=== PATIENT | female | born 1930 | race Caucasian/White ===

== ENCOUNTER 2018-03-22 09:24 | Emergency (ER) | payer MEDICARE ==
[2018-03-22 10:09] LABS: #Basophils 0.1 thou/uL (0.0-0.2); #Eosinphils 0.1 thou/uL (0.0-0.7); #Lymphocytes 0.8 thou/uL (1.20-3.40); #Monocytes 0.9 thou/uL (0.11-0.59); #Neutrophils 7.6 thou/uL (1.40-6.50); %Basophils 0.9 % (0.0-1.0); %Eosinophils 0.5 % (0.0-10.0); %Neutrophils 80.6 % (42.0-75.0); Hemoglobin 11.3 g/dL (12.0-16.0); Mean Corpuscular HGB CONC 32.9 g/dL (32.0-36.0); Mean Corpuscular Hemoglobin 30.8 pg (27.0-31.0); Mean Corpuscular Volume 93.5 fl (81.0-99.0); Mean Platelet Volume 7.7 fL (7.4-10.4); Platelet Count 365 thou/uL (130-400); RBC Distribution Width 13.7 % (11.5-14.5); Red Blood Cell (RBC) Count 3.67 mill/uL (4.20-5.40); White Blood Cell (WBC) Count 9.4 thou/uL (4.8-10.8)
--- NOTE | 2018-03-22 10:14 | RAD ---
PORTABLE CHEST ONE VIEW: Date: 03-22-18 Time: 10:02 a.m. History: Syncope. Comparison: None. FINDINGS/IMPRESSION: The heart size is borderline. Mild pleural effusions are present, larger on the left. No pneumothorac es are identified. There is mild prominence of pulmonary vascularity. POS: [facility]
[2018-03-22 10:31] LABS: Anion Gap 11 mmol/L (10-20); BUN (Urea Nitrogen) 23 mg/dL (9.8-20.1); CK (CPK) 29 U/L (29-168); Calc. Creatinine Clearance 0 mL/min (70-130); Calcium 8.6 mg/dL (7.8-10.44); Carbon Dioxide 25 mmol/L (23-31); Chloride 107 mmol/L (98-107); Estimated GFR-MDRD 52; Glucose 116 mg/dL (83-110); Potassium 4.1 mmol/L (3.5-5.1); Sodium 139 mmol/L (136-145)
[2018-03-22 10:34] LABS: CKMB 1.6 ng/mL (0-6.6); Troponin I 0.018 ng/mL (< 0.028)
--- NOTE | 2018-03-22 10:49 | RAD ---
LEFT HIP TWO VIEWS: HISTORY: An 87-year-old female with a history of left hip pain following an injury. Syncope. Collapse. COMPARISON: No old studies. FINDINGS: Recent left hip nail placement, stabilizing a slightly comminuted intertrochanteric fracture of the l eft femur with slight foreshortening. Bony demineralization. IMPRESSION: 1. Internal fixation changes, intertrochanteric fracture, left femur. 2. No evidence for perihardware fracture or dislocation. POS: C
--- NOTE | 2018-03-22 10:50 | CT ---
BRAIN CT WITHOUT IV CONTRAST: History: 87-year-old female with history of altered mental status. FINDINGS: Marked atrophy and chronic white matter ischemic changes. No mass or midline shift. No intra or extra axial hemorrhages. Sinuses and mastoids are clear of acute process. IMPRESSION: Atrophy and chronic white matter ischemic change. No mass or bleed or other acute process. POS: [facility]
[2018-03-22 10:57] LABS: Bilirubin Negative (Negative); Blood, Urine Negative (Negative); Glucose, Urine (Dipstick) Negative (Negative); Leukocyte Negative (Negative); Nitrite Negative (Negative); Protein, Urine (Dipstick) Negative (Neg-Trace); Urobilinogen 0.2 mg/dL (0.2-1.0); pH, Urine 6.5 (5.0-9.0)
[2018-03-22 10:59] LABS: Clarity Clear (Clear)
== END 2018-03-22 12:30 | disposition home or self-care (01) ==
LOC: ERS 09:24
DX: E86.0 Dehydration (principal); I48.91 Unspecified atrial fibrillation; F03.90 Unspecified dementia, unspecified severity, without behavioral disturbance, psychotic disturbance, mood disturbance, and anxiety; I10 Essential (primary) hypertension; I25.10 Atherosclerotic heart disease of native coronary artery without angina pectoris; Z79.899 Other long term (current) drug therapy
CPT/HCPCS: 36415; 51701; 70450; 71045; 80048; 81003; 82550; 82553; 83605; 84484; 85025; 87040; 87086; 93005; 96360; A4353

== ENCOUNTER 2019-01-12 03:35 | Inpatient (IN) | payer MEDICARE, OTHER ==
[2019-01-12 04:15] LABS: #Eosinphils 0.1 thou/uL (0.0-0.7); #Lymphocytes 1.5 thou/uL (1.20-3.40); #Monocytes 0.9 thou/uL (0.11-0.59); %Basophils 0.2 % (0.0-1.0); %Eosinophils 0.8 % (0.0-10.0); %Lymphocytes 13.1 % (21.0-51.0); Hemoglobin 10.9 g/dL (12.0-16.0); Mean Corpuscular HGB CONC 32.7 g/dL (32.0-36.0); Mean Corpuscular Hemoglobin 30.1 pg (27.0-31.0); Mean Corpuscular Volume 92.2 fL (78.0-98.0); Mean Platelet Volume 7.7 fL (7.4-10.4); Platelet Count 224 thou/uL (130-400); RBC Distribution Width 11.7 % (11.5-14.5); Red Blood Cell (RBC) Count 3.62 mill/uL (4.20-5.40); White Blood Cell (WBC) Count 11.5 thou/uL (4.8-10.8)
[2019-01-12 04:30] LABS: ALT (SGPT) 24 U/L (8-55); AST (SGOT) 25 U/L (5-34); Albumin 3.6 g/dL (3.4-4.8); Alkaline Phosphatase 116 U/L (40-150); Anion Gap 13 mmol/L (10-20); BUN (Urea Nitrogen) 20 mg/dL (9.8-20.1); Bilirubin, Total 0.5 mg/dL (0.2-1.2); Calc. Creatinine Clearance 0 mL/min (70-130); Calcium 8.9 mg/dL (7.8-10.44); Carbon Dioxide 24 mmol/L (23-31); Chloride 105 mmol/L (98-107); Estimated GFR-MDRD 41; Globulin 2.6 g/dL (2.4-3.5); Glucose 144 mg/dL (83-110); Potassium 4.8 mmol/L (3.5-5.1); Protein, Total 6.2 g/dL (6.0-8.3); Sodium 137 mmol/L (136-145)
[2019-01-12 04:34] LABS: INR-International Normal Ratio 1.1; PTT 28.2 SEC (22.9-36.1); Prothrombin Time 13.9 SEC (12.0-14.7)
[2019-01-12] MEDS ORDERED: Ondansetron PF 4 MG/2 ML Vial ONE (04:52)
[2019-01-12] MEDS ORDERED: Morphine 2 MG/ML SYRINGE ONE (06:26)
--- NOTE | 2019-01-12 07:10 | CT ---
CT OF THE BRAIN WITHOUT CONTRAST: Date: 01/12/19 INDICATION: History of fall with head injury. COMPARISON: Prior study dated 03/22/18. FINDINGS: The mild to moderate chronic small vessel white matter ischemic change and generalized cerebral atrop hy is stable. Septum pellucidum and third ventricle are midline. No acute infarct, hemorrhage, or hyd rocephalus is present. Skull and extracranial soft tissues appear within normal limits. IMPRESSION: No acute intracranial abnormality. POS: [facility]
--- NOTE | 2019-01-12 07:12 | CT ---
CT CERVICAL SPINE WITHOUT CONTRAST: Date: 01/12/19 INDICATION: History of trauma with possible neck injury; fall. FINDINGS: Visualized mastoid air cells are clear. There is hyperlordosis of the cervical spine which may be rel ated to positioning. No acute fracture or subluxation is evident. There is diffuse osteopenia. Osseou s central canal and prevertebral soft tissues appear within normal limits. There is pleural parenchym al scarring involving both lung apices. The craniocervical junction appears within normal limits. IMPRESSION: No acute osseous abnormality. POS: [facility]
[2019-01-12] MEDS ORDERED: cefTRIAXone\\ROCEPHIN 2 GM VIAL ONE (07:48)
[2019-01-12] MEDS ORDERED: Azithromycin 500 MG VIAL ONE (07:48)
--- NOTE | 2019-01-12 07:49 | RAD ---
FRadiograph chest one view portable: 01/12/2019 5:32 AM HISTORY: 88-year-old female status post chest trauma from fall COMPARISON: 03/22/2018 FINDINGS: Hyperinflation consistent with COPD. Mild cardiomegaly. Mild blunting of left lateral costophrenic an gle. Previously seen left pleural effusion has decreased in size. Pulmonary venous engorgement. Promi nent interstitial markings heterogeneously distributed in the lungs. No pneumothorax. IMPRESSION: 1. Pleural effusion, mild cardiomegaly, and possible pulmonary interstitial edema, or evidence for mi ld congestive heart failure. 2. Emphysema.
[2019-01-12] MEDS ORDERED: CEFAZOLIN 2 GM in Premix Bag 1 BAG IVPB SCH (08:00)
--- NOTE | 2019-01-12 08:07 | RAD ---
RIGHT KNEE 4 VIEWS: Date: 01/12/19 PROVIDED CLINICAL HISTORY: Pain status post fall. FINDINGS: Overlying material obscures detail and limits evaluation. There is no definite evidence for fracture or other acute osseous abnormality. If there is persistent clinical concern, conservative management and follow-up imaging are advised. IMPRESSION: As above. POS: [facility]
--- NOTE | 2019-01-12 08:08 | RAD ---
RIGHT HIP 2 VIEWS: Date: 01/12/19 PROVIDED CLINICAL HISTORY: Right hip pain status post injury. FINDINGS: There is an intertrochanteric right proximal femoral fracture with resultant coxa vara. Right hip stefan nt space appears maintained. No additional fracture is evident. IMPRESSION: Angulated intertrochanteric right proximal femoral fracture. POS: [facility]
--- NOTE | 2019-01-12 08:26 | CT ---
CT ANGIO OF CHEST PERFORMED WITH INTRAVENOUS CONTRAST ENHANCEMENT WITH 3D RECONSTRUCTIONS: HISTORY: Dyspnea. FINDINGS: There are mild to moderate bilateral pleural effusions. There are bibasilar atelectatic lung changes associated with this. Changes are slightly more confluent in the right lower lobe and infiltrative process is not excluded. Some element of edema appears to be present. No significant mediastinal or hilar lymphadenopathy. Thoracic aorta is normal in caliber. There is good pulmonary artery opacification, and there is no CT evidence for pulmonary embolus. There is a slightly lobulated hypodense lesion within the right lobe of the liver. It measures 3.5 c m in size. On the arterial phase, the CT numbers are most indicative of a cyst increased slightly to above typical cyst numbers on the sequence of more delayed images that were performed, but Hounsfiel d unit variation is only 13, which is not definitive for contrast enhancement. I think an ultrasound may be helpful in evaluating the cystic nature of this. IMPRESSION: 1. No CT evidence for pulmonary embolus. 2. Moderate bilateral pleural effusions with bibasilar lung changes consistent with atelectasis vers us infiltrate. Changes in the right base appear slightly more suggestive of an infiltrative change. There also appears to be some element of edema present. 3. A 3.5 cm lobulated hypodense lesion involving the right lobe of the liver most likely a cyst, alt abbie CT Hounsfield unit numbers are borderline indeterminate. Ultrasound may be helpful given the s ize of this to definitely characterize this is a cyst on a nonemergent basis. POS: [facility]
[2019-01-12] MEDS ORDERED: Furosemide 40 MG/4 ML VIAL SLOW IVP SCH (09:45)
[2019-01-12] MEDS ORDERED: Acetaminophen 325 MG TAB PO PRN (10:04)
[2019-01-12] MEDS ORDERED: methylPREDNISolone Sod Succ/PF 125 MG/2 ML VIAL ONE (10:12)
[2019-01-12] MEDS ORDERED: hydrALAZINE 20 MG/ML VIAL SLOW IVP PRN (10:20)
[2019-01-12] MEDS ORDERED: methylPREDNISolone Sod Succ/PF 125 MG/2 ML VIAL IVP SCH (10:45)
[2019-01-12] MEDS ORDERED: Furosemide 40 MG/4 ML VIAL ONE (11:19)
[2019-01-12] MEDS ORDERED: Piperacillin/Tazobactam 3.375 GM in Sodium Chloride 0.9% 100 ML IVPB SCH (12:00)
[2019-01-12] MEDS ORDERED: Vancomycin HCl 500 MG in Sodium Chloride 0.9% 100 ML IVPB SCH (13:00)
[2019-01-12] MEDS: methylPREDNISolone Sod Succ 40 MG VIAL IVP SCH (14:44)
[2019-01-12] MEDS: Piperacillin/Tazobactam 2.25 GM in Sodium Chloride 0.9% 100 ML IVPB SCH ×2 (14:44→20:19)
[2019-01-12] MEDS: Acetaminophen 500 MG TAB PO SCH ×2 (14:44→17:45)
[2019-01-12] MEDS ORDERED: methylPREDNISolone Sod Succ 40 MG VIAL ONE (14:55)
[2019-01-12] MEDS ORDERED: Acetaminophen 500 MG TAB ONE (14:55)
[2019-01-12] MEDS ORDERED: ISOVUE-370 76%-LOCM 1 ML ONE (15:05)
[2019-01-12 15:36] VITALS: BMI 14.3
--- NOTE | 2019-01-12 15:48 | PDOC.PN ---
- Subjective Encounter Start Date: 01/12/19 Encounter Start Time: 09:00 Subjective: pt had a fall at the residential. she has a hx of dementia. -: spoke with poa. Called pcp but limited hx since pt recently joined -: his practice. spoke with residential nurse who stated that pt has being doing well. Denies any sob, fever or chills or coughing with aspiration - Objective Resuscitation Status - Order Detail: 01/12/19 10:04 Resuscitation Status Routine Resuscitation Status: FULL: Full Resuscitation Vital Signs & Weight: Vital Signs (12 hours) Temp Resp Pulse Ox 01/12/19 15:32 99.0 F 01/12/19 14:03 20 96 Weight Weight 75 lb 12.8 oz Result Diagrams: 01/12/19 04:05 01/12/19 04:05 Phys Exam - Physical Examination Neck: no nodes, no JVD, supple, full ROM mild crackles to bases Cardiovascular: RRR, no significant murmur, no rub, gallop, irregular Gastrointestinal: soft, non-tender, no distention, positive bowel sounds Musculoskeletal: no edema, pulses present, edema present Deviation from normal: pt has a growth to her left neck and right lower leg Dx/Plan (1) Hypoxia Code(s): R09.02 - HYPOXEMIA Status: Acute (2) HTN (hypertension) Code(s): I10 - ESSENTIAL (PRIMARY) HYPERTENSION Status: Acute (3) Right femoral fracture Code(s): S72.91XA - UNSP FRACTURE OF RIGHT FEMUR, INIT FOR CLOS FX Status: Acute (4) CAD (coronary artery disease) Code(s): I25.10 - ATHSCL HEART DISEASE OF [place] CORONARY ARTERY W/O ANG PCTRS Status: Acute (5) Hypothyroid Code(s): E03.9 - HYPOTHYROIDISM, UNSPECIFIED Status: Acute - Plan pt has not been on any asa. will start pt on lasix iv for now -: pt was hypoxic most likely due to bilateral plerual effusion. -: i do not think she has pna but will put her on abx for health care -: acquired pna. will check a procalcitonin level. poa want pt to be -: full code. will get echo, ekg no acute changes from previous. * . Review of Systems - Review of Systems Other: pt has dementia. only complains of pain to her right leg/hip - Medications/Allergies Allergies/Adverse Reactions: Allergies Allergy/AdvReac Type Severity Reaction Status Date / Time No Known Drug Allergies Allergy Verified 01/12/19 15:37 Medications: Current Medications Acetaminophen (Tylenol) 1,000 mg PO Q6HR [facility] Last Admin: 01/12/19 14:44 Dose: 1,000 mg Albuterol/Ipratropium (Duoneb) 3 ml NEB [id number] [facility] Last Admin: 01/12/19 14:03 Dose: 3 ml Enoxaparin Sodium (Lovenox) 40 mg SC 0900 [facility] Famotidine (Pepcid) 20 mg SLOW IVP Q12HR [facility] Hydralazine HCl (Apresoline) 10 mg SLOW IVP Q4H PRN PRN Reason: SBP >160 Piperacillin Sod/Tazobactam (Sod 2.25 gm/ Sodium Chloride) 100 mls @ 200 mls/ hr IVPB 0400,1200,2000 [facility] Last Admin: 01/12/19 14:44 Dose: 100 mls Vancomycin HCl 500 mg/ Sodium (Chloride) 100 mls @ 100 mls/hr IVPB 1300 [facility] Last Admin: 01/12/19 15:43 Dose: 100 mls Methylprednisolone Sodium Succinate (Solu-Medrol) 20 mg IVP 1400 [facility] Last Admin: 01/12/19 14:44 Dose: 20 mg Miscellaneous Medication (Pharmacy To Dose) 1 each IVPB PRN PRN PRN Reason: Pharmacy to dose Tramadol HCl (Ultram) 50 mg PO Q6H PRN PRN Reason: Moderate to Severe Pain (6-10)
[2019-01-12 18:10] LABS: Bilirubin Negative (Negative); Blood, Urine Negative (Negative); Clarity CLEAR (Clear); Glucose, Urine (Dipstick) Negative (Negative); Leukocyte Negative (Negative); Nitrite Negative (Negative); Protein, Urine (Dipstick) Negative (Neg-Trace); Specific Gravity, Urine 1.014 (1.002-1.036); Urobilinogen 0.2 mg/dL (0.2-1.0)
[2019-01-12 18:19] LABS: Bacteria/HPF None Seen HPF (None Seen); Hyaline Casts/LPF 0-3 HYALINE CAST LPF (0-3 Hyaline); Pathc Cast-AUWi Flag 0.13 (0-2.49); RBC/HPF 0-3 HPF (0-3); Squamous Epithelial None Seen HPF (0-3); WBC/HPF None Seen HPF (0-3)
--- NOTE | 2019-01-12 19:56 | CON ---
DATE OF CONSULTATION: REASON FOR CONSULTATION: Preop clearance. HISTORY OF PRESENT ILLNESS: Ms. Black is an 88-year-old woman who [facility] The details around the episode are unknown. She is unsure whether she tripped and fell or passed out and fell. She denies chest pain, pressure, shortness of breath, or associated symptoms. History is limited from the chart. PAST MEDICAL HISTORY: Atrial fibrillation, hypertension, scoliosis, dementia, CAD. Other details unknown. ALLERGIES: NONE. MEDICATIONS: 1. Potassium. 2. Metoprolol. 3. Tylenol. 4. Atorvastatin. 5. Lasix. 6. Levothyroxine. REVIEW OF SYSTEMS: A 10-point review of systems is reviewed and as above, otherwise negative. PHYSICAL EXAMINATION: GENERAL: Patient is a pleasant woman who is in no acute distress. The patient does appear her stated age. She also appears thin and weak. VITAL SIGNS: Blood pressure 159/57, pulse is 71, temperature afebrile. NEUROLOGIC: The patient is alert and oriented x3 with no focal neurologic deficits. HEENT: Sclerae without icterus. Mouth has moist mucous membranes with normal pallor. NECK: No JVD. Carotid upstroke brisk. No bruits bilaterally. LUNGS: Clear to auscultation with unlabored respirations. BACK: No scoliosis or kyphosis. CARDIAC: Regular rate and rhythm with normal S1 and S2. No S3 or S4 noted. No significant rubs, murmurs, thrills, or gallops noted throughout the precordium. PMI is not displaced. There is no parasternal heave. ABDOMEN: Soft, nontender, nondistended. No peritoneal signs present. No hepatosplenomegaly. No abnormal striae. EXTREMITIES: 2+ femoral and 2+ dorsalis pedis pulses. No cyanosis, clubbing, or edema. SKIN: No gross abnormalities. PERTINENT LABORATORY DATA: Hemoglobin 10.9, creatinine 1.25, GFR 41. BNP of 637. IMPRESSION: 1. Preop clearance. 2. Recent fall. RECOMMENDATION: Ms. Black certainly based on her history would be considered increased risk and complications for hip surgery. I do feel the benefits outweigh the risks. There is significant morbidity and mortality without repair. I would recommend echo with Doppler to assess her LVEF. Otherwise, continue beta-reji therapy as described. Job ID: [id number]
[2019-01-12] MEDS: Famotidine/PF 20 mg/2ml Vial SLOW IVP SCH (20:19)
[2019-01-12] MEDS: Metoprolol Tartrate 50 MG TAB PO SCH (20:19)
[2019-01-12] MEDS ORDERED: Vancomycin HCl 1 GM in Premix Bag 1 BAG IVPB SCH (21:00)
--- NOTE | 2019-01-12 21:24 | CON ---
DATE OF CONSULTATION: 01/12/2019 BRIEF HISTORY OF PRESENT ILLNESS: The patient is an 88-year-old lady who is status post ground level fall at her [facility] early on the morning of her admission. The fall was unwitnessed. Upon arrival at [place], her principal complaint was that of right hip pain. Workup included x-rays of the right hip, which demonstrated an intertrochanteric femur fracture with displacement. The patient admitted to the Trauma Service and Orthopedic consultation requested. PAST MEDICAL HISTORY: Remarkable for atrial fibrillation, hypertension, severe dementia, coronary artery disease. PAST SURGICAL HISTORY: Includes left femur fracture with repair. MEDICATIONS: Per her medication reconciliation form were consistent with potassium, metoprolol, citalopram, atorvastatin, Lasix and levothyroxine. ALLERGIES: NONE KNOWN. REVIEW OF SYSTEMS: No recent fevers, sweats, or chills. Denies chest pain or shortness of breath. Currently denies numbness or tingling in the lower extremities. SOCIAL HISTORY: The patient currently resides in [facility]. She denies alcohol or drug use. PHYSICAL EXAMINATION: VITAL SIGNS: Temperature 99, heart rate 71, respiratory rate 22, blood pressure 183/76. HEENT: Atraumatic, normocephalic. HEART: Shows a regular rate and rhythm with no murmur. LUNGS: Clear to auscultation and breathing is unlabored. NECK: Neck is nontender. ABDOMEN: Soft and nondistended with no tenderness. PELVIS: Stable. EXTREMITIES: Remarkable for bilateral upper extremities that are atraumatic. Left lower extremity also atraumatic. Right lower extremity remarkable for hip that is held in external rotation and it is shortened. She was found to have an atraumatic knee ankle and foot. She is wiggling her toes. Denies numbness or tingling. LABORATORY DATA: She was found to have an INR of 1.1, a white blood cell count of 11.5, a hematocrit of 33.4, and 224,000 platelets. X-ray, two-view hip x-ray remarkable for an intertrochanteric femur fracture with a small split extending along the border of the lesser trochanter. ASSESSMENT: An 88-year-old lady status post ground level fall, now with an intertrochanteric femur fracture which is displaced. PLAN: At this time, the patient is receiving a cardiac consultation to assess for preoperative risk factors. I have discussed with Ms. Black the nature of the surgery and more importantly I have discussed with a close friend who is also her durable power of packaging sales the risks and benefits of surgery. Risks include, but are not limited to bleeding, infection, nerve injury, DVT, PE, malunion, nonunion, loss of limb or life. He appears to understand and he has consented for surgery. Once cardiac clearance is completed, we will proceed with stabilization of this fracture. Job ID: [id number]
[2019-01-13] MEDS: Acetaminophen 500 MG TAB PO SCH ×4 (01:41→18:23)
[2019-01-13] MEDS: Piperacillin/Tazobactam 2.25 GM in Sodium Chloride 0.9% 100 ML IVPB SCH ×3 (04:28→20:12)
[2019-01-13] MEDS: traMADol HCl 50 MG TAB PO PRN (04:33)
[2019-01-13 05:03] LABS: Anion Gap 16 mmol/L (10-20); BUN (Urea Nitrogen) 27 mg/dL (9.8-20.1); Calc. Creatinine Clearance 14 mL/min (70-130); Calcium 8.2 mg/dL (7.8-10.44); Carbon Dioxide 23 mmol/L (23-31); Chloride 101 mmol/L (98-107); Estimated GFR-MDRD 32; Glucose 93 mg/dL (83-110); Magnesium 1.7 mg/dL (1.6-2.6); Phosphorus 3.7 mg/dL (2.3-4.7); Potassium 3.6 mmol/L (3.5-5.1); Sodium 136 mmol/L (136-145)
[2019-01-13 05:07] LABS: Band 6 % (5-11); Hemoglobin 10.7 g/dL (12.0-16.0); Lymphocytes 6 % (21-51); MDiff Complete? YES; Mean Corpuscular HGB CONC 32.4 g/dL (32.0-36.0); Mean Corpuscular Hemoglobin 29.4 pg (27.0-31.0); Mean Corpuscular Volume 90.7 fL (78.0-98.0); Mean Platelet Volume 7.8 fL (7.4-10.4); Monocytes 10 % (0-10); Neutrophil 78 % (42-75); Platelet Count 189 thou/uL (130-400); Platelet Morphology Comment Appears Adequate; RBC Distribution Width 11.8 % (11.5-14.5); RBC Morphology Normal; Red Blood Cell (RBC) Count 3.63 mill/uL (4.20-5.40); White Blood Cell (WBC) Count 21.6 thou/uL (4.8-10.8)
[2019-01-13] MEDS: Metoprolol Tartrate 50 MG TAB PO SCH ×2 (06:17→20:11)
[2019-01-13] MEDS: Levothyroxine Sodium 50 MCG TAB PO SCH (06:17)
[2019-01-13] MEDS: Citalopram 20 MG TAB PO SCH (08:44)
[2019-01-13] MEDS: Atorvastatin Calcium 10 MG TAB PO SCH (08:44)
[2019-01-13] MEDS: Furosemide 40 MG/4 ML VIAL SLOW IVP SCH (08:45)
[2019-01-13] MEDS: Famotidine/PF 20 mg/2ml Vial SLOW IVP SCH (08:45)
--- NOTE | 2019-01-13 08:54 | PDOC.CTH ---
Cardiology Progress Note - Objective Vital Signs Temp Pulse Resp Pulse Ox 01/13/19 07:50 100 01/13/19 07:04 99.8 F H 01/13/19 06:53 91 L 01/13/19 06:51 82 23 H 91 L 01/13/19 04:00 99.6 F 01/13/19 02:30 75 19 97 01/12/19 23:53 99.4 F 01/12/19 22:18 65 22 H 100 Admit Weight 75 lb 12.8 oz Weight 75 lb 12.8 oz 01/12/19 01/13/19 01/14/19 06:59 06:59 06:59 Intake Total 620 Output Total 200 Balance 420 - Physical Examination General/Neuro: NAD Neck: no JVD present Lungs: CTA, unlabored respirations Heart: PMI normal, RRR Abdomen: NT/ND, soft Extremities: + femoral B - Labs Result Diagrams: 01/13/19 04:20 01/13/19 04:20 Troponin/CKMB Troponin I 0.014 ng/mL (< 0.028) 01/12/19 04:05 - Assessment/Plan Hip fracture Previous history is limited Echo with normal EF, moderate AI, MR and mod to severe TR and moderate pulmonary HTN Pt at increase risk of CV complications but given hip fracture, the benefits outweigh the risks of proceeding with surgery Keep BP, HR optimal. No other recommendations
[2019-01-13] MEDS ORDERED: Enoxaparin Sodium 40 MG/0.4 ML SYRINGE SC SCH (09:00)
[2019-01-13] MEDS ORDERED: Midazolam HCl 2 mg/2 ml Vial ONE (09:28)
[2019-01-13] MEDS ORDERED: Morphine 2 MG/ML SYRINGE ONE (09:56)
[2019-01-13] MEDS ORDERED: Ondansetron PF 4 MG/2 ML Vial ONE (10:00)
[2019-01-13] MEDS ORDERED: PROPOFOL 200 MG/20 ML VIAL ONE (10:00)
[2019-01-13] MEDS ORDERED: Fentanyl 100 MCG/2 ML VIAL ONE (10:59)
[2019-01-13] MEDS ORDERED: Ondansetron HCl/PF 4 MG/2 ML Vial IVP PRN (11:45)
--- NOTE | 2019-01-13 12:04 | RAD ---
FIntraoperative imaging of the right hip: 01/13/2019 COMPARISON: 01/12/2019 HISTORY: Fracture status post ORIF FINDINGS: 3 intraoperative images demonstrate interval placement of a short antegrade intramedullary charles with an associated distal interlocking screw and femoral neck nail. This is treating the previous ly noted obliquely oriented intertrochanteric fracture. There is anatomic alignment at the fracture s ite. IMPRESSION: ORIF as detailed above.
--- NOTE | 2019-01-13 12:26 | PDOC.PN ---
- Subjective Encounter Start Date: 01/13/19 Encounter Start Time: 12:24 Patient seen and examined - Objective Resuscitation Status - Order Detail: 01/12/19 10:04 Resuscitation Status Routine Resuscitation Status: FULL: Full Resuscitation Vital Signs & Weight: Vital Signs (12 hours) Temp Pulse Resp Pulse Ox 01/13/19 07:50 100 01/13/19 07:04 99.8 F H 01/13/19 06:53 91 L 01/13/19 06:51 82 23 H 91 L 01/13/19 04:00 99.6 F 01/13/19 02:30 75 19 97 Weight Admit Weight 75 lb 12.8 oz Weight 75 lb 12.8 oz Most Recent Monitor Data Heart Rate from ECG 72 NIBP 174/55 NIBP BP-Mean 94 Respiration from ECG 20 SpO2 100 I&O: 01/12/19 01/13/19 01/14/19 06:59 06:59 06:59 Intake Total 620 Output Total 200 Balance 420 Result Diagrams: 01/13/19 04:20 01/13/19 04:20 Phys Exam - Physical Examination Constitutional: NAD HEENT: PERRLA, moist MMs, sclera anicteric Neck: no nodes, no JVD, supple Respiratory: no wheezing, no rales, no rhonchi Cardiovascular: RRR, no significant murmur, no rub Gastrointestinal: soft, non-tender, no distention, positive bowel sounds Musculoskeletal: pulses present, edema present (trace) Dx/Plan (1) Acute kidney injury Code(s): N17.9 - ACUTE KIDNEY FAILURE, UNSPECIFIED Status: Acute (2) CAD (coronary artery disease) Code(s): I25.10 - ATHSCL HEART DISEASE OF [place] CORONARY ARTERY W/O ANG PCTRS Status: Acute (3) HTN (hypertension) Code(s): I10 - ESSENTIAL (PRIMARY) HYPERTENSION Status: Acute (4) Hypothyroid Code(s): E03.9 - HYPOTHYROIDISM, UNSPECIFIED Status: Acute (5) Right femoral fracture Code(s): S72.91XA - UNSP FRACTURE OF RIGHT FEMUR, INIT FOR CLOS FX Status: Acute - Plan * sx for today * Cr bumped up a bit, likely contrast induced, CTA was needed time of admission , will monitor Cr for now with daily BMP * pain control * Echo shows AR/MR/TR * leukocytosis likely from steroids, monitor for now * will f/u with AM labs, ortho sx for today * will follow with you and make adjustments as appropriate from a medical perspective
[2019-01-13] MEDS: CEFAZOLIN 2 GM in Premix Bag 1 BAG IVPB SCH ×2 (13:00→21:16)
[2019-01-13] MEDS: methylPREDNISolone Sod Succ 40 MG VIAL IVP SCH (13:00)
--- NOTE | 2019-01-13 16:57 | PRG ---
DATE OF SERVICE: 01/13/2019 This is Gianfranco Flannery PA-C dictating a report for Myesha Villatoro MD. SUBJECTIVE: The patient is hospital day 2, status post ground-level fall, when she sustained a right hip fracture. The patient was awaiting medical clearance, which she has obtained and is scheduled to go to the operating room today. Overnight, she had no issues. This morning, she states that her pain is controlled. She has been n.p.o. since midnight and she is awaiting her surgery. PHYSICAL EXAMINATION: VITAL SIGNS: Heart rate 72, blood pressure 174/55, respirations 24, oxygen saturations 100% on 4L via nasal cannula. GENERAL: The patient is resting comfortably in bed. She is awake, alert, oriented, and appropriate. HEENT: Unremarkable. LUNGS: The patient has scattered rhonchi bilaterally with some scant wheezing, consistent with her COPD. HEART: Regular rate and rhythm. ABDOMEN: Soft, flat, and nontender with hyperactive bowel sounds. PELVIS: Stable with tenderness to palpation to her right hip, consistent with her fracture. EXTREMITIES: Neurovascularly intact x4. LABORATORY FINDINGS: White blood cell count 21.6, hemoglobin 10.7, hematocrit 32.9, and platelets 189. Sodium 136, potassium 3.6, chloride 101, CO2 of 23, BUN 27, creatinine 1.55, and glucose 93. Magnesium 1.7. Phosphorus 3.7. ASSESSMENT AND PLAN: 1. Status post ground-level fall. 2. Hip fracture. 3. Multiple comorbidities. Plan will be to continue supportive care. The patient was started on steroids and nebulizer treatments for her COPD. The patient was also evaluated by Cardiology and cleared her for her surgery, which will take place today. The patient was evaluated this morning with Dr. Villatoro. Job ID: [id number]
[2019-01-13] MEDS: carBAMazepine 100 mg Chewable Tablet PO SCH (20:11)
[2019-01-14] MEDS: Acetaminophen 500 MG TAB PO SCH ×4 (00:18→18:17)
[2019-01-14] MEDS: traMADol HCl 50 MG TAB PO PRN ×2 (00:18→20:41)
--- NOTE | 2019-01-14 00:25 | CON ---
DATE OF CONSULTATION: 01/13/2019 HISTORY OF PRESENT ILLNESS: Ms. Black is an unfortunate woman with advanced dementia. She fell last year, had a hip fracture repaired in this admission and had a hip fracture repaired. She is examined after surgery. She is not awake. She has labored shallow respiratory effort. PAST MEDICAL HISTORY: Remarkable for, 1. Atrial fibrillation. 2. Hypertension. 3. Dementia. 4. Coronary artery disease. MEDICATIONS: Prior to admission, she is on 1. Metoprolol. 2. Atorvastatin. 3. Lasix. 4. Synthroid. FAMILY HISTORY: Negative for lung disease in early age. SOCIAL HISTORY: Nonsmoker, nondrinker. ALLERGIES: NO DRUG ALLERGIES. REVIEW OF SYSTEMS: 10 point review of systems completed, cannot be obtained. PHYSICAL EXAMINATION: GENERAL: Ms. Black is an unfortunate woman with advanced dementia. VITAL SIGNS: She is afebrile. Heart rate 80s, respiratory rate is in the 20s, blood pressure 166/62. HEAD: Unremarkable. NECK: Unremarkable. LUNGS: Clear. HEART: Regular rhythm. ABDOMEN: Soft and nontender. EXTREMITIES: Without clubbing, cyanosis, or edema. She is extremely cachectic. LABORATORY DATA: White count 21.6, hemoglobin 10.7, platelets 189,000. Electrolytes are unremarkable. Creatinine is 1.55, was 1.25 yesterday. IMPRESSION: End-stage dementia, now with another fall and a hip fracture. I do not feel she will survive this hospitalization. I feel inpatient hospice is appropriate. I relayed that to caregiver. There is no family available. Apparently, she has no immediate family but has been making decisions for. I really do not see any way she can survive this hospitalization. This is a 50 minute consult, with greater than 50% of time spent on unit coordinating care. Job ID: [id number] [facility]
[2019-01-14] MEDS: Piperacillin/Tazobactam 2.25 GM in Sodium Chloride 0.9% 100 ML IVPB SCH ×3 (04:42→20:42)
[2019-01-14 05:24] LABS: #Eosinphils 0.1 thou/uL (0.0-0.7); #Lymphocytes 0.9 thou/uL (1.20-3.40); #Monocytes 1.3 thou/uL (0.11-0.59); #Neutrophils 11.1 thou/uL (1.40-6.50); %Basophils 0.2 % (0.0-1.0); %Eosinophils 0.5 % (0.0-10.0); %Lymphocytes 6.6 % (21.0-51.0); %Monocytes 9.5 % (0.0-10.0); %Neutrophils 83.2 % (42.0-75.0); Hemoglobin 9.3 g/dL (12.0-16.0); Mean Corpuscular HGB CONC 33.1 g/dL (32.0-36.0); Mean Corpuscular Hemoglobin 30.2 pg (27.0-31.0); Mean Corpuscular Volume 91.2 fL (78.0-98.0); Platelet Count 148 thou/uL (130-400); RBC Distribution Width 11.7 % (11.5-14.5); Red Blood Cell (RBC) Count 3.08 mill/uL (4.20-5.40); White Blood Cell (WBC) Count 13.4 thou/uL (4.8-10.8)
[2019-01-14 05:40] LABS: Anion Gap 13 mmol/L (10-20); BUN (Urea Nitrogen) 30 mg/dL (9.8-20.1); Calc. Creatinine Clearance 16 mL/min (70-130); Carbon Dioxide 23 mmol/L (23-31); Chloride 105 mmol/L (98-107); Estimated GFR-MDRD 37; Glucose 82 mg/dL (83-110); Potassium 4.1 mmol/L (3.5-5.1); Sodium 137 mmol/L (136-145)
[2019-01-14] MEDS: CEFAZOLIN 2 GM in Premix Bag 1 BAG IVPB SCH (06:02)
[2019-01-14] MEDS: Levothyroxine Sodium 50 MCG TAB PO SCH (06:05)
[2019-01-14] MEDS ORDERED: Famotidine/PF 20 mg/2ml Vial SLOW IVP SCH (09:00)
[2019-01-14] MEDS ORDERED: Non-Formulary Item 1 EACH (Potassium Chloride [Potassium Chloride] 20 MEQ) PO SCH (09:00)
[2019-01-14] MEDS: Metoprolol Tartrate 50 MG TAB PO SCH ×2 (09:46→20:42)
[2019-01-14] MEDS: carBAMazepine 100 mg Chewable Tablet PO SCH ×2 (09:46→20:42)
[2019-01-14] MEDS: Citalopram 20 MG TAB PO SCH (09:46)
[2019-01-14] MEDS: Potassium Chloride 20 MEQ TAB PO SCH (09:47)
[2019-01-14] MEDS: Atorvastatin Calcium 10 MG TAB PO SCH (09:48)
[2019-01-14] MEDS: Enoxaparin Sodium 30 MG/0.3 ML SYRINGE SC SCH (09:48)
[2019-01-14] MEDS: Furosemide 40 MG/4 ML VIAL SLOW IVP SCH (09:48)
--- NOTE | 2019-01-14 11:03 | OP ---
DATE OF PROCEDURE: 01/13/2019 PREOPERATIVE DIAGNOSIS: Right intertrochanteric femur fracture. POSTOPERATIVE DIAGNOSIS: Right intertrochanteric femur fracture. PROCEDURE PERFORMED: TFN nail, right femur. ANESTHESIA: General. GINGER FARMER: Vandana Dobbs PA-C IMPLANTS: Synthes system was used with 12 x 170 mm, 130 degree titanium TFN nail with a 75 mm helical blade and a single 5.0 mm distal cross-lock screw. COMPLICATIONS: None. DRAINS: None. SPECIMEN: None. OUTCOME: Satisfactory reduction and placement of hardware. INDICATIONS: The patient is an 88-year-old lady, status post ground level fall sustaining a right intertrochanteric femur fracture with some extension to include the medial calcar and lesser trochanter. After discussion with the patient and family, we have decided to proceed with TFN stabilization. Procedure explained to patient and family including risks and benefits. Risks include, but are not limited to bleeding, infection, nerve injury, DVT, PE, malunion, nonunion, hardware failure, loss of limb or life. They appear to understand and do wish to proceed. Consent has been obtained. DESCRIPTION OF PROCEDURE: The patient was brought to the operating room and a time-out performed followed by induction of general anesthesia. The patient was positioned on the fracture table with the injured extremity held in longitudinal traction and slight internal rotation with the well leg scissored in extension to allow for AP, lateral imaging of the right hip. Next, a sterile prep and drape was performed of the right lateral thigh. A small incision was made just proximal to the greater trochanter. After skin was sharply incised, dissection was carried down bluntly such that the finger could be passed into the wound and palpate the tip of the greater trochanter. Next, a threaded guidewire was passed from the tip of the greater trochanter into the proximal femoral canal. Once appropriately positioned, the initial reamer was passed over this guidewire, opening up the proximal femoral canal. Next, 12 x 170 mm long TFN nail was passed down the intramedullary canal without difficulty. Once appropriately positioned, a second incision was made distal to the first to accommodate the jig for the hip screw placement. Once incision was made, the jig was introduced through the skin up to the lateral cortex of the femur. A threaded guidewire was then introduced through the lateral cortex and under C-arm guidance eventually positioned approaching a [id number] head position. Once positioned, measurement was taken off this pin. It was determined that a 75 mm long hip screw to be of appropriate length. Unfortunately, we did not have hip screws of that length and as such, we converted to a helical blade. Next the step drill was passed over the guidewire reaming the lateral cortex of the femur. The helical blade was then inserted and introduced up the femoral neck into the femoral head. Once appropriately positioned, the locking mechanism was engaged and backed off a half turn to allow for sliding of the helical blade. Next, a third incision was made distal to the second incision and through this incision, a single distal cross-lock screw was introduced using the appropriate jig. At the completion of this, the jig was removed from the nail and AP, lateral C-arm images were obtained that showed anatomic alignment of the fracture and appropriate positioning of the hardware. Next, the three small incisions were irrigated with bulb syringe, then closed in layers with 2-0 Vicryl and maureen for the skin. Xeroform gauze tape dressing was applied and the patient was transferred to recovery room in stable condition. There were no complications. The patient tolerated the procedure well. Job ID: [id number]
--- NOTE | 2019-01-14 11:31 | PDOC.PN ---
- Subjective Encounter Start Date: 01/14/19 Encounter Start Time: 11:28 Patient seen and examined, security administrator at bedside, no family at bedside, all questions answered. - Objective Resuscitation Status - Order Detail: 01/14/19 04:18 Resuscitation Status Routine Resuscitation Status: DNAR: NO Resuscitation Discussed with: patients EN, [place] Ornelas and advance directives Vital Signs & Weight: Vital Signs (12 hours) Temp Pulse Resp Pulse Ox 01/14/19 11:11 64 19 01/14/19 08:00 98.4 F 01/14/19 07:59 92 L 01/14/19 07:36 72 18 01/14/19 04:00 98.0 F 100 01/14/19 00:54 99.0 F Weight Admit Weight 75 lb 12.8 oz Weight 75 lb 12.8 oz Most Recent Monitor Data Heart Rate from ECG 81 NIBP 158/64 NIBP BP-Mean 95 Respiration from ECG 20 SpO2 93 I&O: 01/13/19 01/14/19 01/15/19 06:59 06:59 06:59 Intake Total 620 330 Output Total 200 200 Balance 420 130 Result Diagrams: 01/14/19 05:00 01/14/19 05:00 Phys Exam - Physical Examination Constitutional: NAD HEENT: PERRLA, moist MMs, sclera anicteric Neck: no nodes, no JVD, supple Respiratory: no wheezing, no rales, no rhonchi sinus tach systolic ejection murmur Gastrointestinal: soft, non-tender, no distention Musculoskeletal: no edema, pulses present surgical site C/D/I Dx/Plan (1) Acute kidney injury Code(s): N17.9 - ACUTE KIDNEY FAILURE, UNSPECIFIED Status: Acute (2) CAD (coronary artery disease) Code(s): I25.10 - ATHSCL HEART DISEASE OF [place] CORONARY ARTERY W/O ANG PCTRS Status: Acute (3) HTN (hypertension) Code(s): I10 - ESSENTIAL (PRIMARY) HYPERTENSION Status: Acute (4) Hypothyroid Code(s): E03.9 - HYPOTHYROIDISM, UNSPECIFIED Status: Acute (5) Right femoral fracture Code(s): S72.91XA - UNSP FRACTURE OF RIGHT FEMUR, INIT FOR CLOS FX Status: Acute - Plan * s/p hip surgery, ortho following * patient very appropriate for hospice, call placed to [facility] * plan to DC to hospice once arrangements made possibly in the next 24-48hrs * no changes to current plan of care otherwise at this point in time * case and plan d/w patient's security administrator, requested to call me if any questions or if the son has any questions when he arrives
--- NOTE | 2019-01-14 12:06 | PRG ---
DATE OF SERVICE: 01/14/2019 SUBJECTIVE: Ms. Black is in no distress. OBJECTIVE: VITAL SIGNS: Heart rate 72, respiratory rate 18, oximetry is 100% on 4 L, and blood pressure 120/42. GENERAL: She is more awake and alert. She told her caregiver today that she is dying. LUNGS: Remarkable for mild rhonchi. HEART: Regular rhythm. ABDOMEN: Soft. EXTREMITIES: Without edema. She moves all extremities weakly. LABORATORY DATA: White count 13.4, hemoglobin 9.3, and platelets 148. Sodium 137, potassium 4.1, chloride 105, bicarb 22, BUN 30, and creatinine 1.37. IMPRESSION AND PLAN: 1. Status post surgical repair of a hip fracture for pain control. 2. Advanced age, dementia, extreme deconditioning, and cachexia. She is stable to move out of the intermediate care unit to the surgical floor. Her lipid drugs and her unnecessary medications could be discontinued in my opinion. She could continue on her hypertension drugs. I do not really see a clear-cut indication for IV antimicrobial therapy at this point. I do not see any radiographic or clinical evidence that she has a pneumonia. I have again reviewed her CT angiogram and just see more atelectatic changes in her lung bases. She can be transitioned off IV antimicrobial therapy. Job ID: [id number]
--- NOTE | 2019-01-14 14:19 | PRG ---
DATE OF SERVICE: 01/14/2019 SUBJECTIVE: The patient remains in the IMCU. She underwent her surgical procedure yesterday, specifically a TFN nail to the right femur. She tolerated this procedure well, though she did have some sleep disturbances last night, but fortunately her caregivers were nearby to help with this. This morning, she is resting comfortably. The caregiver states that she was awake long enough to have a few bites of breakfast, but has been resting ever since. She would wake up to take her medications administered by the nurse this morning also. OBJECTIVE: VITAL SIGNS: Temperature is 98.4, heart rate 71, blood pressure 138/51, respirations 16, oxygen saturation is 98% on 3 L via nasal cannula. GENERAL: The patient is resting comfortably in bed. She is asleep, but was able to wake up and follow my simple commands during my physical exam. HEENT: Unremarkable. LUNGS: Clear to auscultation with moderate inspiratory and expiratory effort. HEART: Regular rate and rhythm. ABDOMEN: Soft, flat, nontender with active bowel sounds. EXTREMITIES: Neurovascularly intact x4. Postop dressing is clean, dry, and intact. LABORATORY FINDINGS: White blood cell count 13.4, hemoglobin 9.7, hematocrit 28.1, platelets 148. Sodium 137, potassium 4.1, chloride 105, CO2 of 23, BUN 30, creatinine 1.37, glucose 82. There are no radiographs reviewed this morning. ASSESSMENT: 1. Status post fall. 2. Status post open reduction and internal fixation of right femur fracture. 3. Multiple comorbidities. PLAN: Plan will be to continue supportive care. We will move the patient to the surgical floor today and start working with Physical and Occupational therapy and discuss placement. Tomorrow will probably the most likely date a decision will be made. Job ID: [id number]
[2019-01-15] MEDS: Acetaminophen 500 MG TAB PO SCH ×5 (00:09→22:17)
[2019-01-15] MEDS: Piperacillin/Tazobactam 2.25 GM in Sodium Chloride 0.9% 100 ML IVPB SCH (04:12)
[2019-01-15] MEDS: Levothyroxine Sodium 50 MCG TAB PO SCH (05:50)
--- NOTE | 2019-01-15 07:27 | HP ---
ADDENDUM: This is an addendum to the H and P dictated by tanisha Garland. For full details, please see her history and physical, the details of which I have confirmed. In short, Ms. Black is an 88-year-old woman, who is a demented [facility] patient, who had an unwitnessed fall yesterday morning [place] [facility] and was brought into the emergency room complaining of right hip pain. I saw her yesterday afternoon in the emergency room with Ms. Perez. The patient started complaining of shortness of breath after her arrival in the emergency room and had received nebulizer treatments and oxygen. When I saw her with Ms. Perez, she was comfortable with oxygen face mask. She was not complaining of any shortness of breath or chest pain. She has a past medical history of coronary artery disease, atrial fibrillation, hypertension and scoliosis, and is on atorvastatin, Lasix, metoprolol, Synthroid, potassium, and Tylenol at the [place] [facility]. Complete examination was performed. The patient is extremely thin and frail but according to the caregiver who was at the bedside, this is her baseline for weight. She did have mild ankle edema, which the caregiver states fluctuates depending on her fluid balance. Her O2 sats and other vital signs were normal and I did not appreciate any murmurs, rubs, or gallops. Her lungs were clear and she did not have any crackles or diminished breath sounds. Abdomen was soft and nontender, and she was complaining only of hip pain. Labs and x-rays were reviewed. She was evaluated by Cardiology and although at increased risk for complications of hip surgery, the benefits were felt to outweigh the risks. According to the caregiver, the patient highly values her activity and is quite active at baseline. The patient's medical power of finance attorney is a close friend, who has been very involved in her care for the past 40 years and has stated that the patient is full code. The patient herself states that she would like to be resuscitated, but she does not want to be kept on prolonged life support. She seems undecided about chest compressions. I recommended that she discuss this with her medical power of finance attorney and the palliative care team, so that everyone is on the same page regarding her wishes. Job ID: [id number]
--- NOTE | 2019-01-15 07:31 | HP ---
HISTORY OF PRESENT ILLNESS: Sheri Black is an 88-year-old female who presented to [facility] early this morning, status post multiple falls. The patient was seen and evaluated in the emergency room and found to have a right hip fracture. Orthopedic Surgery was notified and Trauma Service was asked to admit. Of note, the patient has a history of dementia and is a very poor historian. There is no family available at bedside. History is obtained primarily through records review and discussion with retirement personnel, who are at bedside. Records from retirement have been requested. Per the retirement personnel, the patient fell once yesterday, but was able to walk afterwards and evaluated by medical personnel at the facility. Later that evening, she was folding clothes and fell again. She was brought to the emergency room for further evaluation. She was noted to be acutely hypoxic with an O2 saturation of 80%. She was placed on high-flow nasal cannula, however, her O2 saturation continued to worsen eventually needing non-rebreather. At the time of my evaluation, the patient has been weaned back down to nasal cannula. She has received one dose of Lasix per Hospital Medicine recommendations. PAST MEDICAL HISTORY: Unknown. ALLERGIES: UNKNOWN. HOME MEDICATIONS: 1. Potassium 20 mEq p.o. daily. 2. Carbamazepine 100 mg b.i.d. 3. Citalopram 20 mg daily. 4. Toprol-XL 50 mg daily. 5. Tylenol 325 q.6 hours p.r.n. 6. Atorvastatin 20 mg daily. 7. Lasix 40 mg p.r.n. 8. Synthroid 50 mcg daily. CHRONIC MEDICAL ILLNESSES: Atrial fibrillation, hypertension, high cholesterol, dementia, CAD, status post PTCA. PAST SURGICAL HISTORY: PTCA, unknown vessel, unknown timing. Left femur fracture repair. SOCIAL HISTORY: The patient is a resident at [facility]. She has no remaining family. Her power of reprint sorter is a family friend, personnel at bedside. Denied tobacco, alcohol, or illicit drug use. REVIEW OF SYSTEMS: Unobtainable. FAMILY HISTORY: Unobtainable. PHYSICAL EXAMINATION: VITAL SIGNS: Blood pressure 181/61, pulse 78, respirations 24, and O2 saturation 100% on 4 to 6 L nasal cannula. GENERAL: An elderly-appearing female, in no acute distress, resting in bed, lying flat. HEENT: Head, normocephalic and atraumatic. Eyes, pupils are PERRL. Extraocular movements are intact. NECK: Supple. Trachea is midline. There is a 1.5 x 2 cm growth on the left side of her neck, that looks suspicious for cancerous lesion. PULMONARY: Chest is atraumatic. Nontender to palpation. Normal work of breathing. Symmetric rise. Lung sounds are distant with crackles and expiratory wheezing. CARDIOVASCULAR: Regular rate and rhythm with systolic ejection murmur. ABDOMEN: Soft, nontender, and nondistended. MUSCULOSKELETAL: Moves all extremities x4. There is evidence of chronic stasis dermatitis. Right lower extremity, range of motion is limited secondary to pain. She has a large 4 x 5 cm growth on the medial aspect of the right lower extremity. Pulses are palpable bilaterally. Right lower extremity is externally rotated and shortened. Back exam is reported as being within normal limits. NEUROLOGIC: The patient is alert and oriented x4. No focal deficit is noted. LABORATORY FINDINGS: WBC 11.5, hemoglobin 10.9, hematocrit 33.4, and platelet count 224. INR is 1.1. Sodium 137, potassium 4.8, chloride 105, carbon dioxide 24, BUN 20, creatinine 1.25, and glucose 144. AST and ALT are within normal limits. Troponin 0.014. BNP 637.1. Lactic acid is 1.4. RADIOGRAPHIC FINDINGS: CT of the brain was negative for acute intracranial abnormality. CT of the C-spine was negative for acute fracture or dislocation. X-ray of the right hip showed a right proximal femur fracture. X-ray of the right knee was negative for bony fracture or dislocation. Chest x-ray demonstrated hyperinflated lungs with pleural effusion and bilateral prominent interstitial markings. CTA of the chest and thorax was negative for pulmonary embolism. Significant for bilateral pleural effusion with bibasilar lung changes. There was also evidence of a 3.5 cm hypodense lesion in the right lobe of the liver, which was indeterminate. ASSESSMENT: 1. Status post fall. 2. Acute hypoxic respiratory failure, likely multifactorial. 3. Right proximal femur fracture. 4. History of atrial fibrillation and coronary artery disease. 5. Hypertension. 6. History of congestive heart failure with acute decompensation. 7. Possible chronic lung disease. 8. History of dementia. PLAN: Start Solu-Medrol, DuoNeb, and wean O2 as tolerated. The patient has been given Lasix per Hospital Medicine. She has additionally been started on antibiotics for possible pneumonia. The patient will need cardiac clearance per discussion with Hospital Medicine prior to operative intervention to her orthopedic injury. Orthopedic Surgery has been notified in the hopes for operative intervention once clearance has been obtained. Discussion with power of reprint sorter and Hospital Medicine regarding code status revealed that the patient is currently a full code, however, with discussion by myself and Dr. Villatoro with the patient at bedside, the patient is unsure what her wishes are, will place a palliative care consult for this reason. Pain management with p.o. and IV analgesics. The patient should be n.p.o. at midnight in case we do obtain clearance. Echo now. Follow urine output closely. A.m. labs. Postoperative PT and OT. The patient has been seen and evaluated by Dr. Villatoro at the time of this dictation. Of note, the patient was initially seen and evaluated at approximately 0830 hours this morning. Job ID: [id number]
[2019-01-15] MEDS: Enoxaparin Sodium 30 MG/0.3 ML SYRINGE SC SCH (09:46)
[2019-01-15] MEDS: Metoprolol Tartrate 50 MG TAB PO SCH ×2 (09:46→22:11)
[2019-01-15] MEDS: Amoxicillin/Potassium Clav 500 MG TAB PO SCH ×2 (09:46→22:11)
[2019-01-15] MEDS: Citalopram 20 MG TAB PO SCH (09:46)
[2019-01-15] MEDS: Famotidine 20 MG TAB PO SCH (09:46)
[2019-01-15] MEDS: Potassium Chloride 20 MEQ TAB PO SCH (09:46)
[2019-01-15] MEDS: carBAMazepine 100 mg Chewable Tablet PO SCH ×2 (09:46→22:11)
[2019-01-15] MEDS: Furosemide 40 MG/4 ML VIAL SLOW IVP SCH (09:47)
[2019-01-15] MEDS: Atorvastatin Calcium 10 MG TAB PO SCH (09:47)
--- NOTE | 2019-01-15 11:33 | PRG ---
DATE OF SERVICE: 01/15/2019 SUBJECTIVE: Sheri Black is afebrile. OBJECTIVE: Heart rate in the 70s, respiratory rate in the 20s, oximetry is 91% on room air, blood pressure 165/52. IMPRESSION: Clinically, there has been a very little change. PLAN: The next step in my opinion is inpatient hospice. There are no new lab findings. She is stable to move to a surgical piedra. Job ID: [id number]
--- NOTE | 2019-01-15 12:22 | PDOC.EVN ---
Event Note - Event Note Event Note: DC SUMMAR #[id number]
--- NOTE | 2019-01-15 12:53 | DIS ---
DATE OF ADMISSION: 01/12/2019 DATE OF DISCHARGE: 01/15/2019 ADMITTING DIAGNOSES: Fall, hip fracture, acute kidney injury, pleural effusion, and dementia. DISCHARGE DIAGNOSES: Hip fracture, status post arthroplasty; pleural effusion, stable; acute kidney injury, resolved. HOSPITAL COURSE: An 88-year-old female who had a mechanical slip and fall, presented to the hospital, was seen by Orthopedic Surgery, Pulmonary Critical Care, Internal Medicine for evaluation. The patient was taken to the operating room. The patient had a hip replacement done. Observed for 48 hours. Given her severe poor prognostic condition as well as lengthy discussions between Internal Medicine, Orthopedics as well as Pulmonary Critical Care and with the patient's guardian, power of energy attorney, decision was made for the patient to undergo hospice per agreement to the family and family decided to go with [facility]. The patient's arrangements were made to be sent to [facility], where she lives with hospice care. Case and plan discussed with the patient, caregiver, and power of energy attorney at length. They understood and agreed with this plan. DISPOSITION: [facility] with hospice. CONDITION: Guarded. PROGNOSIS: Poor. ACTIVITY: As tolerated with assistance as needed. DIET: Low-fat, low-calorie, high-fiber diet. MEDICATIONS: See MAR. Case and plan once again discussed with all caregivers and [id number] at length. They understand and agree with this plan. Job ID: [id number]
--- NOTE | 2019-01-15 15:55 | PQF ---
ADE ARROYO KIMIYE MD [id number] CLINICAL DOCUMENTATION IMPROVEMENT CLARIFICATION FORM: ICD-10 Updated PLEASE DO AN ADDENDUM TO THE PROGRESS NOTE WITH ANY DOCUMENTATION UPDATES OR ADDITIONS AND CARRY THROUGH TO DC SUMMARY. THANK YOU. Date: 01/15/19 ATTN : Dr. Silva Please exercise your independent, professional judgment in responding to the clarification form. Clinical indicators are provided on the bottom of this form for your review Please check appropriate box(s): [ x ] Protein Calorie Malnutrition: [ x ] Mild [ ] Other Malnutrition (please specify) __ [ ] Other diagnosis [ ] Unable to determine In addition, please specify: Present on Admission (POA): [ x ] Yes [ ] No [ ] Unable to determine CLINICAL INDICATORS - SIGNS / SYMPTOMS / LABS Cachexia per 01/14 Dr. Carcamo note BMI of 14.3 01/15 note Two or More of the Following: Unintentional Insufficient Energy Intake--> 14% x7 meals per 01/15 note RISK FACTORS Change in appetite / nausea / vomiting / diarrhea--> patient not waking up for meals per report 01/15 note Chronic illness dementia per H&P TREATMENT: Dietary consult 01/15 per orders Nutritional supplements--> Suplena BID increased to TID 01/15 Moderate Malnutrition (in acute illness) Energy Intake: <75% of estimated energy requirement for > 7 days Weight Loss: 1-2%/1 week; 5%/ 1 month; 7.5%/3 months Other: mild body fat loss; mild muscle mass loss; mild fluid accumulation; Severe Malnutrition (in acute illness) Energy Intake: < 50% of estimated energy requirement for > 5 days Weight Loss: >1-2%/1 week; >5%/1 month; >7.5%/3 months Other: moderate body fat loss; moderate muscle mass loss; moderate- severe fluid accumulation; measurably reduced scholarship counselor strength Moderate Malnutrition (in chronic illness) Energy Intake: <75% of estimated energy requirement for >1 month Weight Loss: 5%/1 month; 7.5%/3 months; 10%/6 months; 20%/1 year Other: mild body fat loss; mild muscle mass loss; mild fluid accumulation Severe Malnutrition (in chronic illness) Energy Intake: <75% of estimated energy requirement for >1 month Weight Loss: >5%/1 month; >7.5%/3 months; >10%/6 months; >20%/1 year Other: severe body fat loss; severe muscle mass loss; severe fluid accumulation ; measurably reduced scholarship counselor strength (This form is maintained as a part of the permanent medical record) 2014 [employer], [employer]. All Rights Reserved Mariana Mann RN, BSN, CCDS [email or web address]
[2019-01-15 16:00] VITALS: BP 140/54
--- NOTE | 2019-01-15 16:05 | PQF ---
ADE ARROYO KIMIYE MD [id number] JACOBO ELKINS [id number] CLINICAL DOCUMENTATION IMPROVEMENT CLARIFICATION FORM: ICD-10 Updated PLEASE DO AN ADDENDUM TO THE PROGRESS NOTE WITH ANY DOCUMENTATION UPDATES OR ADDITIONS AND CARRY THROUGH TO DC SUMMARY. THANK YOU. DATE: 01/15/19 ATTN: Dr. Silva Please exercise your independent, professional judgment in responding to the clarification form. Clinical indicators are provided on the bottom of this form for your review Please check appropriate box(s): HEART FAILURE: A. TYPE: [ ] Systolic / HFrEF [ x ] Diastolic / HFpEF [ ] Combined Systolic / Diastolic B. ACUITY [ x ] Acute on Chronic [ ] Chronic [ ] Other diagnosis [ ] Unable to determine In addition, please specify: Present on Admission (POA): [ x ] Yes [ ] No [ ] Unable to determine For continuity of documentation, please document condition throughout progress notes and discharge summary. Thank You. CLINICAL INDICATORS - SIGNS / SYMPTOMS / LABS 01/13 ECHO: LVEF 50-55% ED note 01/12 pt not maintaining 02 sat on 6L O2 and is tachyneic. Elevated BNP 637 01/12 lab Bilateral Pleural effusion CXR 01/12 H&P: History of CHF with acute decompensation RISKS: History of CAD, HTN H&P TREATMENTS: Administration of BB--01/12-01/15 metoprolol per MAR Cardiac monitoring / telemetry IV diuretics--> IV lasix 01/13-01/15 per MAR Oxygen--> 6L O2 to NRB see ED note (This form is maintained as a part of the permanent medical record) 2014 [employer]. All Rights Reserved Mariana Mann, RN, BSN, CCDS [email or web address] [phone] MARLY
[2019-01-16] MEDS: traMADol HCl 50 MG TAB PO PRN (01:44)
[2019-01-16] MEDS: Levothyroxine Sodium 50 MCG TAB PO SCH (06:28)
[2019-01-16] MEDS: Acetaminophen 500 MG TAB PO SCH (06:28)
[2019-01-16 07:08] VITALS: TEMP 98.6
--- NOTE | 2019-01-16 07:59 | PRG ---
DATE OF SERVICE: 01/15/2019 SUBJECTIVE: The patient is seen resting comfortably in bed today. Pain well-controlled. No acute events overnight. The patient tolerating p.o. OBJECTIVE: VITAL SIGNS: Temp 99.4, pulse 74, respirations 24, O2 saturation 91%, blood pressure 132/47. GENERAL: The patient resting comfortably in bed with normal respiratory effort. HEENT: NC/AT. LUNGS: Normal respiratory effort. HEART: No edema present, sinus rhythm noted on monitor. ABDOMEN: Soft. No distention. EXTREMITIES: Moves all 4. Dressing clean, dry, and intact. LABORATORY FINDINGS: No new laboratory or imaging for today. ASSESSMENT: 1. Status post fall. 2. Status post open reduction and internal fixation of right femur fracture. PLAN: The patient to be discharged to [facility] on hospice care today. Continue therapies as ordered. This patient was seen and examined with Dr. Thomas Coppola on morning rounds. Job ID: [id number]
[2019-01-16] MEDS: Potassium Chloride 20 MEQ TAB PO SCH (09:28)
[2019-01-16] MEDS: Citalopram 20 MG TAB PO SCH (09:29)
[2019-01-16] MEDS: Metoprolol Tartrate 50 MG TAB PO SCH (09:29)
[2019-01-16] MEDS: Atorvastatin Calcium 10 MG TAB PO SCH (09:29)
[2019-01-16] MEDS: carBAMazepine 100 mg Chewable Tablet PO SCH (09:30)
[2019-01-16] MEDS: Amoxicillin/Potassium Clav 500 MG TAB PO SCH (09:30)
[2019-01-16] MEDS: Famotidine 20 MG TAB PO SCH (09:30)
[2019-01-16] MEDS: Furosemide 40 MG/4 ML VIAL SLOW IVP SCH (09:31)
[2019-01-16] MEDS: Enoxaparin Sodium 30 MG/0.3 ML SYRINGE SC SCH (09:31)
== END 2019-01-16 11:07 | disposition home health service (06) | DRG 480 ==
LOC: ERS 03:35 → ERHOLD 06:49 → IMCU/EMU 15:25
PROVIDERS: ADMIT Surgery; ATTEND Surgery
PROC: 0QS636Z Reposition Right Upper Femur with Intramedullary Internal Fixation Device, Percutaneous Approach (ICD-10-PCS; principal; 2019-01-13)
DX: S72.141A Displaced intertrochanteric fracture of right femur, initial encounter for closed fracture (principal); J96.01 Acute respiratory failure with hypoxia; N17.9 Acute kidney failure, unspecified; I50.33 Acute on chronic diastolic (congestive) heart failure; J90 Pleural effusion, not elsewhere classified; E44.1 Mild protein-calorie malnutrition; Z68.1 Body mass index [BMI] 19.9 or less, adult; Z66 Do not resuscitate; F03.90 Unspecified dementia, unspecified severity, without behavioral disturbance, psychotic disturbance, mood disturbance, and anxiety; I48.91 Unspecified atrial fibrillation; E78.00 Pure hypercholesterolemia, unspecified; I25.10 Atherosclerotic heart disease of native coronary artery without angina pectoris; I11.0 Hypertensive heart disease with heart failure; I50.9 Heart failure, unspecified; M41.9 Scoliosis, unspecified; E03.9 Hypothyroidism, unspecified; W18.30XA Fall on same level, unspecified, initial encounter; J44.9 Chronic obstructive pulmonary disease, unspecified; Z95.5 Presence of coronary angioplasty implant and graft; Z79.899 Other long term (current) drug therapy
CPT/HCPCS: 36415; 36416; 70450; 71045; 71275; 72125; 76000; 80048; 80053; 81001; 82274; 83605; 83735; 83880; 84100; 84145; 84484; 85025; 85610; 85730; 87040; 87086; 93005; 93306; 94640; 96361; 96365; 96367; 96375; C1713; J0360; J0456; J0690; J0696; J1650; J1940; J2250; J2270; J2405; J2543; J2704; J2920; J2930; J3010; J3370; J3490; J7620; Q9966; S0028